=== PATIENT | female | born 1945 | race Caucasian/White ===

== ENCOUNTER 2019-06-27 12:52 | Emergency (ER) | payer MEDICARE ==
[~2019-06-27] VITALS: Ht 167.6 cm; Wt 80.4 kg
[~2019-06-27 12:52] MED LIST: AMLO10TA4 PO; ATOR40TA59 PO; CARV25TA2 PO; CITA40TA5 PO; DIAZ2TAB PO; DIPH25TA64 PO; GABA300C18 PO; HYDR-3165 PO; HYDR12.58 PO; LORA0.5T96 PO; LOSA100T14 PO; MECL-75 PO; METF500S5 PO; ONDA4TAB12 PO; PANT40TA77 PO; SENN8.8S5 PO; VENTOLIN HFA18 GM INH
[2019-06-27] MEDS ORDERED: ONDANSETRON PF 4 MG/2 ML VIAL. IVP ONE (14:00)
[2019-06-27] MEDS ORDERED: fentaNYL PF VIAL 100 MCG/2 ML VIAL IVP ONE (14:00)
[2019-06-27 14:12] LABS: BASO % 0 % (0-3); EOS % 0 % (0-3); HEMATOCRIT 42.8 % (36.0-47.0); HEMOGLOBIN 14.4 g/dL (12.0-15.5); LYMPH # 1.4 x10^3/uL (1.0-4.8); LYMPH % 14 % (24-48); MEAN CORPUSCULAR HEMOGLOBIN 29 pg (25-35); MEAN CORPUSCULAR HGB CONC 34 g/dL (31-37); MEAN CORPUSCULAR VOLUME 87 fL (79-100); MONO # 0.5 x10^3/uL (0.0-1.1); MONO % 5 % (0-9); NEUT # 8.1 x10^3/uL (1.8-7.7); NEUT % 80 % (31-73); PLATELET COUNT 259 x10^3/uL (140-400); RED BLOOD COUNT 4.91 x10^6/uL (3.50-5.40); RED CELL DISTRIBUTION WIDTH 13.4 % (11.5-14.5); WHITE BLOOD COUNT 10.1 x10^3/uL (4.0-11.0)
--- NOTE | 2019-06-27 14:17 | RAD ---
PORTABLE CHEST 1V Clinical Indication: Headache, nausea and vomiting. Comparison: None. Findings: Cardiac size upper limits of normal. A few tiny calcified granulomas are seen. Lungs are clear. There is no pneumothorax. No pleural effusion is appreciated. There is degenerative endplate spurring of the thoracic spine. Left axillary surgical clips. IMPRESSION: No acute cardiopulmonary process. Electronically signed by: Son Rodriguez MD (06/27/2019 2:15 PM) [id number]
[2019-06-27 14:22] LABS: PROTHROMBIN TIME PATIENT 13.1 SEC (11.7-14.0)
[2019-06-27 14:24] LABS: CREATININE 0.9 mg/dL (0.6-1.0); GFR 61.2
--- NOTE | 2019-06-27 14:28 | EKG ---
[facility] [address] [place] [address] Test Date: 2019-06-27 Test Time: 14:11:55 Pat Name: FABY BARNETT Department: Room: Gender: F [employer] Shift Supervisor: : 1945 Requested By: LIZ OCHOA Order Number: [id number] Reading MD: Measurements Intervals Clarissa Rate: 72 P: 41 TX: 142 QRS: 26 QRSD: 84 T: 41 QT: 390 QTc: 429 Interpretive Statements SINUS RHYTHM NORMAL ECG RI6.01 No previous ECG available for comparison
[2019-06-27 14:30] LABS: ALBUMIN 3.9 g/dL (3.4-5.0); ALBUMIN/GLOBULIN RATIO 0.9 (1.0-1.7); MAGNESIUM 1.9 mg/dL (1.8-2.4); TOTAL BILIRUBIN 0.7 mg/dL (0.2-1.0); TOTAL PROTEIN 8.3 g/dL (6.4-8.2)
--- NOTE | 2019-06-27 14:34 | RAD ---
CT scan of the head without contrast 06/27/2019 Clinical History: Headaches and dizziness. Technique: Unenhanced, contiguous, 5 mm axial sections were obtained through the head. One or more of the following individualized dose reduction techniques were utilized for this study: 1. Automated exposure control. 2. Adjustment of the mA and/or kV according to patient size. 3. Use of iterative reconstruction technique. Findings: Comparison study is dated 04/21/2019. There is generalized parenchymal atrophy. Areas of decreased attenuation are seen within the periventricular and subcortical white matter of both cerebral hemispheres consistent with areas of small vessel ischemic disease. No acute parenchymal abnormality is seen. No extra-axial fluid collection is noted. No skull fracture is seen. Impression: No acute intracranial abnormality is seen. Electronically signed by: Naun Pizarro MD (06/27/2019 2:31 PM) [id number]
--- NOTE | 2019-06-27 14:51 | RAD ---
CT scan of the abdomen and pelvis without contrast 06/27/2019 CLINICAL HISTORY: Abdominal pain. Nausea and vomiting. TECHNIQUE: Unenhanced, contiguous, 5 mm axial sections were obtained through the abdomen and pelvis. One or more of the following individualized dose reduction techniques were utilized for this study: 1. Automated exposure control. 2. Adjustment of the mA and/or kV according to patient size. 3. Use of iterative reconstruction technique. FINDINGS: No previous imaging studies are available for comparison. Images through the lung bases demonstrate mild cardiomegaly. Minimal dependent subsegmental atelectasis is seen bilaterally. Calcified granulomas are seen involving the liver and spleen. The pancreas, adrenal glands and right kidney are within normal limits. A rounded solid-appearing mass is seen involving the medial aspect of the mid/lower pole of the left kidney. This measures 3.4 cm in greatest diameter. Atherosclerotic calcification of the abdominal aorta is seen. The abdominal aorta tapers normally. No free fluid or free air is within abdomen. There is no evidence of bowel obstruction. Surgical clips are seen within the gallbladder fossa consistent with a cholecystectomy. The appendix is well-visualized and is within normal limits. No retroperitoneal lymphadenopathy is seen. Images through the pelvis demonstrate the urinary bladder distended with urine. No free fluid is seen. The patient appears to be post hysterectomy. No pelvic or inguinal lymphadenopathy is seen. Low-attenuation lesions are seen involving both ovaries which measure 1 to 2.4 cm in size. These likely represent follicles/cysts. Minimal S-shaped curvature of the thoracolumbar spine is seen. Degenerative changes are seen involving the lower thoracic and throughout the lumbar spine along with both hips. IMPRESSION: 1. 3.4 cm solid-appearing mass is seen involving medial aspect of the mid/lower pole of the left kidney. This is concerning for a renal neoplasm such as renal cell carcinoma. 2. No acute abnormality is seen. Electronically signed by: Naun Pizarro MD (06/27/2019 2:48 PM) [id number]
[2019-06-27 16:09] LABS: BILIRUBIN,URINE NEGATIVE (NEG); CLARITY,URINE CLEAR; COLOR,URINE YELLOW; NITRITE,URINE NEGATIVE (NEG); PH,URINE 6.5 (<5.0-8.0); PROTEIN,URINE 30 mg/dL (NEG-TRACE); UROBILINOGEN,URINE 0.2 mg/dL (0.2 mg/dL)
[2019-06-27 16:11] LABS: BACTERIA,URINE FEW /HPF (0-FEW); RBC,URINE RARE /HPF (0-2); SQUAMOUS EPITHELIAL CELL,UR MOD /LPF
--- NOTE | 2019-06-27 16:14 | PHYS DOC ---
Past Medical History Past Medical History: Cancer, COPD, Diabetes-Type I, GERD, High Cholesterol, Hypertension Additional Past Medical Histor: BREAT CANCER Past Surgical History: Other Additional Past Surgical Histo: BREAST LYMPHNODES REMOVED ON THE LEFT SIDE Smoking Status: Never Smoker Alcohol Use: None Adult General Chief Complaint Chief Complaint: ABDOMINAL PAIN HPI HPI Patient is a 74 year old female with history of hypertension, dyslipidemia, diabetes mellitus, GERD, COPD, breast cancer who presents with pain of headache and abdominal pain and nausea and vomiting. Patient states she has had history of migraine headache since yesterday had left sided sharp headache as a constant pain with almost 10 episodes of vomiting that was worse than her usual migraine headache. Patient complaining of lower abdominal pain as a constant pain without radiation and stated she had abdominal pain because of vomiting. Patient denied fever and chills, focal neuro deficit, blurred vision, chest pain and shortness of breath, urinary symptoms, diarrhea and constipation. Patient had blood pressure more than 200 at arrival to ER. Review of Systems Review of Systems Constitutional: Denies fever or chills [] Eyes: Denies change in visual acuity, redness, or eye pain [] HENT: Denies nasal congestion or sore throat [] Respiratory: Denies cough or shortness of breath [] Cardiovascular: No additional information not addressed in HPI [] GI: Reports abdominal pain, nausea, vomiting, denies bloody stools or diarrhea [] : Denies dysuria or hematuria [] Musculoskeletal: Denies back pain or joint pain [] Integument: Denies rash or skin lesions [] Neurologic: Reports headache, denies focal weakness or sensory changes [] Endocrine: Denies polyuria or polydipsia [] All other systems were reviewed and found to be within normal limits, except as documented in this note. Current Medications Current Medications Current Medications Medications (Trade) Dose Ordered Sig/Nancy Start Time Stop Time Status Last Admin Dose Admin Ceftriaxone Sodium (Rocephin) 1 gm 1X ONCE 06/27/19 16:30 06/27/19 16:32 DC 06/27/19 16:45 1 GM Fentanyl Citrate (Fentanyl 2ml Vial) 50 mcg 1X ONCE 06/27/19 14:00 06/27/19 14:01 DC 06/27/19 14:36 50 MCG Ondansetron HCl (Zofran) 4 mg 1X ONCE 06/27/19 14:00 06/27/19 14:01 DC 06/27/19 14:36 4 MG Allergies Allergies Allergies Coded Allergies Type Severity Reaction Last Updated Verified amoxicillin Allergy Intermediate 04/21/19 Yes clavulanic acid Allergy Intermediate 04/21/19 Yes tizanidine Allergy Intermediate 04/21/19 Yes Physical Exam Physical Exam Constitutional: Well developed, well nourished, mild distress, non-toxic appearance. [] HENT: Normocephalic, atraumatic, bilateral external ears normal, oropharynx moist, no oral exudates, nose normal. [] Eyes: PERRLA, EOMI, conjunctiva normal, no discharge. [] Neck: Normal range of motion, no tenderness, supple, no stridor, no meningeal sign. [] Cardiovascular:Heart rate regular rhythm, no murmur [] Lungs & Thorax: Bilateral breath sounds clear to auscultation [] Abdomen: Bowel sounds normal, soft, no tenderness, no masses, no pulsatile masses. [] Skin: Warm, dry, no erythema, no rash. [] Back: No tenderness, no CVA tenderness. [] Extremities: No tenderness, no cyanosis, no clubbing, ROM intact, no edema. [] Neurologic: Alert and oriented X 3, normal motor function, normal sensory functi on, no focal deficits noted. [] Psychologic: Affect normal, judgement normal, mood normal. [] Current Patient Data Vital Signs Vital Signs Date Time Temp Pulse Resp B/P (MAP) Pulse Ox O2 Delivery O2 Flow Rate FiO2 06/27/19 15:43 99.6 68 18 186/77 (113) 99 2.0 99.6 06/27/19 14:36 Room Air Lab Values Laboratory Tests Test 06/27/19 13:30 06/27/19 15:05 White Blood Count 10.1 x10^3/uL (4.0-11.0) Red Blood Count 4.91 x10^6/uL (3.50-5.40) Hemoglobin 14.4 g/dL (12.0-15.5) Hematocrit 42.8 % (36.0-47.0) Mean Corpuscular Volume 87 fL (79-100) Mean Corpuscular Hemoglobin 29 pg (25-35) Mean Corpuscular Hemoglobin Concent 34 g/dL (31-37) Red Cell Distribution Width 13.4 % (11.5-14.5) Platelet Count 259 x10^3/uL (140-400) Neutrophils (%) (Auto) 80 % (31-73) H Lymphocytes (%) (Auto) 14 % (24-48) L Monocytes (%) (Auto) 5 % (0-9) Eosinophils (%) (Auto) 0 % (0-3) Basophils (%) (Auto) 0 % (0-3) Neutrophils # (Auto) 8.1 x10^3/uL (1.8-7.7) H Lymphocytes # (Auto) 1.4 x10^3/uL (1.0-4.8) Monocytes # (Auto) 0.5 x10^3/uL (0.0-1.1) Eosinophils # (Auto) 0.0 x10^3/uL (0.0-0.7) Basophils # (Auto) 0.0 x10^3/uL (0.0-0.2) Prothrombin Time 13.1 SEC (11.7-14.0) Prothrombin Time INR 1.0 (0.8-1.1) Sodium Level 135 mmol/L (136-145) L Potassium Level 4.0 mmol/L (3.5-5.1) Chloride Level 96 mmol/L (98-107) L Carbon Dioxide Level 30 mmol/L (21-32) Anion Gap 9 (6-14) Blood Urea Nitrogen 10 mg/dL (7-20) Creatinine 0.9 mg/dL (0.6-1.0) Estimated GFR (Cockcroft-Gault) 61.2 BUN/Creatinine Ratio 11 (6-20) Glucose Level 161 mg/dL (70-99) H Calcium Level 10.0 mg/dL (8.5-10.1) Magnesium Level 1.9 mg/dL (1.8-2.4) Total Bilirubin 0.7 mg/dL (0.2-1.0) Aspartate Amino Transferase (AST) 18 U/L (15-37) Alanine Aminotransferase (ALT) 15 U/L (14-59) Alkaline Phosphatase 174 U/L (46-116) H Creatine Kinase 123 U/L (26-192) Troponin I Quantitative < 0.017 ng/mL (0.000-0.055) EG-Pla-Z-Type Natriuretic Peptide 773 pg/mL (0-124) H Total Protein 8.3 g/dL (6.4-8.2) H Albumin 3.9 g/dL (3.4-5.0) Albumin/Globulin Ratio 0.9 (1.0-1.7) L Lipase 88 U/L (73-393) Urine Collection Type Unknown Urine Color Yellow Urine Clarity Clear Urine pH 6.5 (<5.0-8.0) Urine Specific [place] 1.020 (1.000-1.030) Urine Protein 30 mg/dL (NEG-TRACE) Urine Glucose (UA) Negative mg/dL (NEG) Urine Ketones (Stick) 15 mg/dL (NEG) Urine Blood Negative (NEG) Urine Nitrite Negative (NEG) Urine Bilirubin Negative (NEG) Urine Urobilinogen Dipstick 0.2 mg/dL (0.2 mg/dL) Urine Leukocyte Esterase Small (NEG) Urine RBC Rare /HPF (0-2) Urine WBC 11-20 /HPF (0-4) Urine Squamous Epithelial Cells Mod /LPF Urine Bacteria Few /HPF (0-FEW) Urine Mucus Mod /LPF Laboratory Tests 06/27/19 13:30 Laboratory Tests 06/27/19 13:30 EKG EKG EKG interpreted by me. EKG at 1411 showed normal sinus rhythm at rate of 72, normal [place] and QT intervals, no acute ST and T-wave elevation. Radiology/Procedures Radiology/Procedures [facility] [address] [place] [address] IMAGING REPORT Signed PATIENT: FABY BARNETT ACCOUNT: [id number] : 1945 LOCATION: ER AGE: 74 SEX: F EXAM STATUS: REG ER ORD. PHYSICIAN: LIZ OCHOA MD REASON: Abdominal pain, nausea and vomiting, HEADACHES, DIZZINESS PROCEDURE: CT HEAD WO CONTRAST CT scan of the head without contrast 06/27/2019 Clinical History: Headaches and dizziness. Technique: Unenhanced, contiguous, 5 mm axial sections were obtained through the head. One or more of the following individualized dose reduction techniques were utilized for this study: 1. Automated exposure control. 2. Adjustment of the mA and/or kV according to patient size. 3. Use of iterative reconstruction technique. Findings: Comparison study is dated 04/21/2019. There is generalized parenchymal atrophy. Areas of decreased attenuation are seen within the periventricular and subcortical white matter of both cerebral hemispheres consistent with areas of small vessel ischemic disease. No acute parenchymal abnormality is seen. No extra-axial fluid collection is noted. No skull fracture is seen. Impression: No acute intracranial abnormality is seen. Electronically signed by: Naun Pizarro MD (06/27/2019 2:31 PM) [id number] DICTATED and SIGNED BY: NAUN PIZARRO MD DATE: 06/27/19 1431 [facility] [address] [place], [place] [id number] IMAGING REPORT Signed PATIENT: FABY BARNETT ACCOUNT: [id number] : 1945 LOCATION: ER AGE: 74 SEX: F EXAM STATUS: REG ER ORD. PHYSICIAN: LIZ OCHOA MD REASON: Headache, nausea and vomit PROCEDURE: PORTABLE CHEST 1V PORTABLE CHEST 1V Clinical Indication: Headache, nausea and vomiting. Comparison: None. Findings: Cardiac size upper limits of normal. A few tiny calcified granulomas are seen. Lungs are clear. There is no pneumothorax. No pleural effusion is appreciated. There is degenerative endplate spurring of the thoracic spine. Left axillary surgical clips. IMPRESSION: No acute cardiopulmonary process. Electronically signed by: Son Rodriguez MD (06/27/2019 2:15 PM) [id number] DICTATED and SIGNED BY: SON RODRIGUEZ MD DATE: 06/27/19 1415 [facility] [address] [place] [address] IMAGING REPORT Signed PATIENT: FABY BARNETT ACCOUNT: [id number] : 1945 LOCATION: ER AGE: 74 SEX: F EXAM STATUS: REG ER ORD. PHYSICIAN: LIZ OCHOA MD REASON: Abdominal pain, nausea and vomiting PROCEDURE: CT ABDOMEN PELVIS WO CONTRAST CT scan of the abdomen and pelvis without contrast 06/27/2019 CLINICAL HISTORY: Abdominal pain. Nausea and vomiting. TECHNIQUE: Unenhanced, contiguous, 5 mm axial sections were obtained through the abdomen and pelvis. One or more of the following individualized dose reduction techniques were utilized for this study: 1. Automated exposure control. 2. Adjustment of the mA and/or kV according to patient size. 3. Use of iterative reconstruction technique. FINDINGS: No previous imaging studies are available for comparison. Images through the lung bases demonstrate mild cardiomegaly. Minimal dependent subsegmental atelectasis is seen bilaterally. Calcified granulomas are seen involving the liver and spleen. The pancreas, adrenal glands and right kidney are within normal limits. A rounded solid-appearing mass is seen involving the medial aspect of the mid/lower pole of the left kidney. This measures 3.4 cm in greatest diameter. Atherosclerotic calcification of the abdominal aorta is seen. The abdominal aorta tapers normally. No free fluid or free air is within abdomen. There is no evidence of bowel obstruction. Surgical clips are seen within the gallbladder fossa consistent with a cholecystectomy. The appendix is well-visualized and is within normal limits. No retroperitoneal lymphadenopathy is seen. Images through the pelvis demonstrate the urinary bladder distended with urine. No free fluid is seen. The patient appears to be post hysterectomy. No pelvic or inguinal lymphadenopathy is seen. Low-attenuation lesions are seen involving both ovaries which measure 1 to 2.4 cm in size. These likely represent follicles/cysts. Minimal S-shaped curvature of the thoracolumbar spine is seen. Degenerative changes are seen involving the lower thoracic and throughout the lumbar spine along with both hips. IMPRESSION: 1. 3.4 cm solid-appearing mass is seen involving medial aspect of the mid/lower pole of the left kidney. This is concerning for a renal neoplasm such as renal cell carcinoma. 2. No acute abnormality is seen. Electronically signed by: Naun Pizarro MD (06/27/2019 2:48 PM) [id number] DICTATED and SIGNED BY: NAUN PIZARRO MD DATE: 06/27/19 1448 Course & Med Decision Making Course & Med Decision Making Pertinent Labs and Imaging studies reviewed. (See chart for details) Evaluation of patient in ER showed 74-year-old female patient with complaining of migraine headache and vomiting and abdominal pain related to vomiting. Patient did not have meningeal sign or fever neuro deficit. Patient treated with fentanyl and Zofran with improvement of his condition. Patient has history of COPD with drop of oxygen during sleep low 90s with increased with waking up and was advised to follow-up with her primary care physician. Also CT of abdomen and pelvis showed left renal mass concern for malignancy and patient was advised to follow-up with her primary care physician formed more evaluation of renal mass. Patient had elevation of blood pressure more than 200 that gradually decreased to 170 over 90s with control of pain. Patient was advised to continue home blood pressure medication patient had UTI and treated with Rocephin in ER and prescription for Cipro was given. Dragon Disclaimer Dragon Disclaimer This electronic medical record was generated, in whole or in part, using a voice recognition dictation system. Departure Departure Impression: Primary Impression: Migraine headache Additional Impressions: Accelerated hypertension Urinary tract infection Renal mass, left Abdominal pain Disposition: HOME, SELF-CARE (at 1629) Condition: IMPROVED Referrals: TEJAL MALDONADO (PCP) Patient Instructions: Migraine Headache, Urinary Tract Infection Additional Instructions: Continue home medication Follow-up with your primary care physician in 3-5 days for evaluation of left kidney mass Return to ER if not getting better Thank you for visiting [facility]. We appreciate you trusting us with your care. If any additional problems come up don't hesitate to return to visit us. Please follow up with your primary care provider so they can plan additional care if needed and know about the problem that you had. If symptoms worsen come back to the Emergency Department. Any concerning symptoms that start such as chest pain, shortness of air, weakness or numbness on one side of the body, running high fevers or any other concerning symptoms return to the ER. Scripts Hydrocodone/Apap 5-325 (NORCO 5-325 TABLET) 1 Each Tablet 1 TAB PO PRN Q6HRS PRN for PAIN, #10 TAB 0 Refills Prov: LIZ OCHOA MD 06/27/19 Ondansetron Hcl (ZOFRAN) 4 Mg Tablet 1 TAB PO PRN Q6-8HRS for nausea, #12 TAB Prov: LIZ OCHOA MD 06/27/19 Ciprofloxacin Hcl (CIPRO) 250 Mg Tablet 1 TAB PO BID for infection, #6 TAB Prov: LIZ OCHOA MD 06/27/19 Critical Care Time Critical care time was 60 minutes exclusive of procedures. Problem Qualifiers Primary Impression: Migraine headache Migraine type: unspecified Status migrainosus presence: without status mi grainosus Intractability: not intractable Qualified Codes: G43.909 - Migraine, unspecified, not intractable, without status migrainosus Additional Impressions: Urinary tract infection Urinary tract infection type: site unspecified Hematuria presence: without hematuria Qualified Codes: N39.0 - Urinary tract infection, site not specified Abdominal pain Abdominal location: lower abdomen, unspecified Qualified Codes: R10.30 - Lower abdominal pain, unspecified LIZ OCHOA MD Jun 27, 2019 16:14
[2019-06-27] MEDS ORDERED: cefTRIAXone IV Push 1 GM VIAL. IVP ONE (16:30)
[2019-06-27] MEDS ORDERED: HYDR-3164 PO (16:37)
[2019-06-27] MEDS ORDERED: ONDA4TAB7 PO (16:37)
[2019-06-27] MEDS ORDERED: CIPR250T30 PO (16:37)
[2019-06-27 17:00] VITALS: BP 166/79
== END 2019-06-27 17:14 | disposition home or self-care (01) ==
LOC: ER 12:52
DX: G43.909 Migraine, unspecified, not intractable, without status migrainosus (principal); N39.0 Urinary tract infection, site not specified; N28.89 Other specified disorders of kidney and ureter; I10 Essential (primary) hypertension; R11.2 Nausea with vomiting, unspecified; E10.9 Type 1 diabetes mellitus without complications; E78.00 Pure hypercholesterolemia, unspecified; K21.9 Gastro-esophageal reflux disease without esophagitis; J44.9 Chronic obstructive pulmonary disease, unspecified; Z88.1 Allergy status to other antibiotic agents; Z88.8 Allergy status to other drugs, medicaments and biological substances
CPT/HCPCS: 36415; 70450; 71045; 74176; 80053; 81001; 82550; 83690; 83735; 83880; 84484; 85025; 85610; 87086; 93005; 96374; 96375; 99285; J0696; J2405; J3010